=== PATIENT | female | born 1985 | race Caucasian/White ===

== ENCOUNTER 2020-08-03 09:23 | Emergency (ER) | payer OTHER, MEDICAID, SELFPAY ==
[2020-08-03 09:31] VITALS: BP 178/111; PULSE 103; RESP 14; TEMP 36.7; O2SAT 99
[2020-08-03] MEDS: ONDANSETRON 4 MG ODT PO (09:45)
[2020-08-03] MEDS: LORazepam 0.5 MG TABLET 1 MG PO (09:48)
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
--- NOTE | 2020-08-03 10:51 | PC.NURSE ---
Pt clothing, Shirt, underwear, jeans in paper bag, sealed w/ evidence tape, signed, dated and timed. Given to Det Otis Bowers.
[2020-08-03 11:07] VITALS: BP 169/106; PULSE 90; RESP 18; O2SAT 99
[2020-08-03 13:40] VITALS: BP 110/64; PULSE 79; RESP 18; O2SAT 99
== END 2020-08-03 13:41 | disposition short-term general hospital (02) ==
PROVIDERS: Emergency Provider Emergency Medicine
DX: T76.21XA Adult sexual abuse, suspected, initial encounter (principal); R11.0 Nausea
CPT/HCPCS: 99284